=== PATIENT | male | born 1945 | race Caucasian/White ===

== ENCOUNTER 2017-03-11 05:16 | Inpatient (IN) | payer OTHER ==
[2017-02-27 08:54] LABS: HEMATOCRIT 45.1 % (42.0-52.0); HEMOGLOBIN 14.9 gm/dL (14.0-18.0); MCH 28.2 pg (26.0-34.0); MCV 85.6 fL (80.0-100.0); RBC 5.27 mil/uL (4.50-6.00); RDW 14.6 % (10.5-14.5); WBC 7.9 thou/uL (4.0-11.0)
[2017-02-27 09:02] LABS: ALBUMIN 4.1 g/dL (3.4-5.0); CALCIUM 9.5 mg/dL (8.5-10.1); CREATININE 1.5 mg/dL (0.7-1.3); POTASSIUM 4.3 mmol/L (3.5-5.1)
[2017-02-27 09:17] LABS: INR 1.1; PROTIME 11.6 Seconds (9.3-11.4)
[2017-02-27 10:20] LABS: URINE BILIRUBIN NEGATIVE (Negative); URINE BLOOD TRACE (Negative); URINE COLOR YELLOW; URINE GLUCOSE-RANDOM* NEGATIVE (Negative); URINE KETONES NEGATIVE (Negative); URINE PROTEIN (DIPSTICK) TRACE (Negative); URINE SPECIFIC GRAVITY 1.015 (1.003-1.035); URINE UROBILINOGEN 0.2 E.U./dl (0.2-1.0)
[2017-02-27 10:21] LABS: URINE LEUKOCYTES-REFLEX 1+ (Negative)
[2017-02-27 10:45] LABS: CASTS None Seen /LPF (None Seen); CRYSTALS None Seen /LPF (None Seen); SQUAMOUS >10 Many /LPF (0-3)
[2017-02-27 10:46] LABS: URINE RBC 0-2 Rare /HPF (0-2)
[~2017-03-11] VITALS: Ht 195.6 cm; Wt 113.9 kg
[2017-03-11] VITALS (14 sets, daily range): BP systolic 71–165; BP diastolic 36–86
--- NOTE | ~2017-03-11 | O ---
[facility] [place] [address] OPERATIVE REPORT Name: SUNNYOPALALVAROCINDY Deleon Room #: 408-P ADM IN M.R.#: [id number] Admission: 03/11/17 Attend Phys: Brady Calles MD Discharge: Date of : 47 Report #: [id number] THIS REPORT FOR: //name// CC: Brady Moreno DATE OF SERVICE: 03/11/2017 PREOPERATIVE DIAGNOSES: End-stage degenerative arthritis, left knee with varus malalignment. POSTOPERATIVE DIAGNOSES: End-stage degenerative arthritis, left knee with varus malalignment. PROCEDURE: Left total knee arthroplasty. SURGEON: Brady Calles MD INDICATIONS: This still active 71-year-old gentleman complains of progressive bilateral knee pain. He has moderate varus malalignment and rather significant crepitus, pain and occasional swelling and joint effusion. His symptoms are somewhat greater on the left side. We discussed treatment options. He feels conservative measures have been ineffective and is anxious to go ahead with left total knee arthroplasty. DESCRIPTION OF PROCEDURE: The patient was taken to the operating room where he was placed under general anesthesia. A femoral nerve block was also applied. The left knee and leg were meticulously prepped and draped. Prophylactic intravenous antibiotics were administered. Left thigh tourniquet was applied and inflated to 300 mmHg. An anterior longitudinal skin incision was made and carried along the medial parapatellar retinaculum. The patella was reflected laterally. Marked degenerative change in all 3 compartments was noted. The Christianson and Nephew knee system was utilized. Intramedullary guides were used on both the femur and the tibia. The femur was cut in 5 degrees of valgus. The tibia was cut perpendicular to long axis of the bone with 3 degrees of posterior slope. The femur seemed best suited for a size 6 left femoral component. The tibia was also best suited for a size 6 tibial component. A 10 mm polyethylene insert trial was placed, and this resulted in satisfactory alignment, range of motion and stability. The knee demonstrated full extension and flexion beyond 130 degrees with good stability throughout the full arc of movement. The articular surface of the patella was resected. A 35 mm patellar button seemed to fit nicely. Appropriate anchor holes were created, and a trial patella was inserted. The patella seemed to track nicely and appeared to be stable throughout a full arc of movement. At this point, the trial components were removed. The surfaces were thoroughly [address] [address] OPERATIVE REPORT Name: KERRI CORREA Room #: 408-P [facility] [place] ..#: [id number] Admission: 03/11/17 Attend Phys: Brady Calles MD Discharge: Date of : 47 Report #: [id number] irrigated. The intramedullary canal was blocked with a bone block on both the femoral and tibial sides. Methyl methacrylate cement was mixed and injected into the porous surface of the tibia. The Christianson and Nephew size 6 left tibial component was then impacted into position. It seated nicely and appeared to be secure. Excess cement was removed from around its margin. A size 6 left femoral component was then applied. This was impacted into position. It seated nicely and appeared to be secure. The cruciate retaining implants were utilized. A 10 mm polyethylene insert was snapped into position. This seated nicely and appeared to be secure. The 35 mm patellar button was positioned with appropriate anchor holes and cement and secured with a patellar clamp until the cement had hardened. All excess cement was removed around its margin. Alignment, range of motion and stability were once again assessed and felt to be satisfactory. A single Hemovac was left in the wound exiting through a separate stab incision. The tourniquet was then deflated after a total tourniquet time of 60 minutes. The fascia was then closed with multiple #1 Vicryl sutures. The subcutaneous tissues were closed with 0 Monocryl. The skin was closed with skin armando. A sterile dressing was applied. The patient was awakened and returned to recovery room in good condition. <ELECTRONICALLY SIGNED> By: Brady Calles MD 03/13/17 1224 0930 1026 Brady Calles MD /nt
[~2017-03-11 05:16] MED LIST: ALLERCLEAR10 MG PO; ELIQUIS5 MG PO; FLOMAX0.4 MG PO; GEMFIBROZIL 60600 MG PO; HYDROCHLOROTHIA25 M2 PO; LIPITOR 20 MG T20 M1 PO; LISINOPRIL10 MG PO; MEDROL DOSPAK21 TA1 PO; METOPROLOL TAR100 MG PO; PROPAFENONE 15150 MG PO; PROTONIX40 M2 PO
[2017-03-11 18:13] LABS: HEMOGLOBIN 12.1 gm/dL (14.0-18.0)
[2017-03-12 00:11] VITALS: BP 97/54
[2017-03-12 05:14] VITALS: BP 103/52
[2017-03-12 06:37] LABS: ABSOLUTE NEUTROPHILS 5.7 thou/uL (1.4-8.2); BASOPHILS 0.4 % (0.0-2.0); EOSINOPHILS 0.7 % (0.0-3.0); HEMATOCRIT 31.6 % (42.0-52.0); HEMOGLOBIN 10.9 gm/dL (14.0-18.0); LYMPHOCYTES 14.7 % (24.0-44.0); MCH 29.7 pg (26.0-34.0); MCHC 34.6 g/dL (28.0-37.0); MCV 85.9 fL (80.0-100.0); MONOCYTES 11.6 % (1.0-8.0); PLATELET COUNT 125 thou/uL (150-400); POLYS 72.6 % (36.0-66.0); RBC 3.68 mil/uL (4.50-6.00); RDW 15.2 % (10.5-14.5); WBC 7.9 thou/uL (4.0-11.0)
[2017-03-12 06:43] LABS: MANUAL DIFF NO
[2017-03-12 06:57] LABS: ALBUMIN 2.9 g/dL (3.4-5.0); CALCIUM 8.2 mg/dL (8.5-10.1); CREATININE 1.8 mg/dL (0.7-1.3); MAGNESIUM 1.7 mg/dL (1.8-2.4); POTASSIUM 3.8 mmol/L (3.5-5.1); TOTAL BILIRUBIN 0.3 mg/dL (<0.1-1.0); TOTAL PROTEIN 5.4 g/dL (6.4-8.2)
[2017-03-12 09:09] VITALS: BP 94/49
[2017-03-12 20:55] VITALS: BP 154/65
[2017-03-13 04:42] VITALS: BP 138/65
[2017-03-13 05:40] LABS: HEMOGLOBIN 10.4 gm/dL (14.0-18.0); MANUAL DIFF YES; MCHC 33.6 g/dL (28.0-37.0); MCV 86.3 fL (80.0-100.0); PLATELET COUNT 114 thou/uL (150-400); RBC 3.59 mil/uL (4.50-6.00); RDW 15.2 % (10.5-14.5); WBC 5.6 thou/uL (4.0-11.0)
[2017-03-13 05:47] LABS: CALCIUM 8.1 mg/dL (8.5-10.1); CREATININE 1.6 mg/dL (0.7-1.3); POTASSIUM 4.4 mmol/L (3.5-5.1)
[2017-03-13 07:58] LABS: ABSOLUTE NEUTROPHILS 3.8 thou/uL (1.4-8.2); ANISOCYTOSIS 1+; TOTAL CELL COUNT 100
[2017-03-13 08:00] VITALS: BP 108/68
[2017-03-13 16:19] VITALS: BP 144/70
[2017-03-13 20:00] VITALS: BP 158/65
[2017-03-14 04:00] VITALS: BP 176/85
[2017-03-14 06:08] LABS: HEMATOCRIT 31.2 % (42.0-52.0); HEMOGLOBIN 10.5 gm/dL (14.0-18.0); MCH 29.1 pg (26.0-34.0); MCHC 33.8 g/dL (28.0-37.0); MCV 86.1 fL (80.0-100.0); RBC 3.62 mil/uL (4.50-6.00); RDW 14.8 % (10.5-14.5); WBC 5.7 thou/uL (4.0-11.0)
[2017-03-14 06:19] LABS: CALCIUM 8.1 mg/dL (8.5-10.1); CREATININE 1.5 mg/dL (0.7-1.3); POTASSIUM 4.3 mmol/L (3.5-5.1)
[2017-03-14 08:00] VITALS: BP 170/89
[2017-03-14 08:05] VITALS: BP 170/89
[2017-03-14 15:16] VITALS: BP 170/89
[2017-03-14 15:17] VITALS: BP 170/89
== END 2017-03-14 16:00 | disposition home health service (06) | DRG 469 ==
LOC: 4N 05:16 → TBA 05:16 → PRE 05:25 → 4N 10:57 → PRE 14:24 → ENTRNSPT 03-14 15:54 → EDTRNSPTSTS 03-14 15:57 → 4N 03-14 16:00
PROVIDERS: Hospitalist; Nurse Practitioner; Orthopaedic Surgery
PROC: 0SRD0J9 Replacement of Left Knee Joint with Synthetic Substitute, Cemented, Open Approach (ICD-10-PCS; principal; 2017-03-11)
DX: M17.12 Unilateral primary osteoarthritis, left knee (principal); N17.0 Acute kidney failure with tubular necrosis; E43 Unspecified severe protein-calorie malnutrition; I48.92 Unspecified atrial flutter; I10 Essential (primary) hypertension; I48.91 Unspecified atrial fibrillation; G47.33 Obstructive sleep apnea (adult) (pediatric); E11.40 Type 2 diabetes mellitus with diabetic neuropathy, unspecified; I95.9 Hypotension, unspecified; E78.00 Pure hypercholesterolemia, unspecified; M19.011 Primary osteoarthritis, right shoulder; M19.071 Primary osteoarthritis, right ankle and foot; Z68.29 Body mass index [BMI] 29.0-29.9, adult; Z79.899 Other long term (current) drug therapy; Z85.828 Personal history of other malignant neoplasm of skin
CPT/HCPCS: 50010; 50101; 50415; 50954; 51130; 51225; 51412; 51771; 53078; 53364; 56525; 62110; 62900; 64042; 64043; 70005

== ENCOUNTER 2017-12-30 05:23 | Inpatient (IN) | payer OTHER ==
[2017-12-18 09:20] LABS: URINE BILIRUBIN NEGATIVE (Negative); URINE BLOOD NEGATIVE (Negative); URINE CLARITY SL CLOUDY; URINE COLOR YELLOW; URINE GLUCOSE-RANDOM* NEGATIVE (Negative); URINE KETONES NEGATIVE (Negative); URINE PROTEIN (DIPSTICK) NEGATIVE (Negative); URINE UROBILINOGEN 0.2 E.U./dl (0.2-1.0)
[2017-12-18 09:37] LABS: URINE LEUKOCYTES-REFLEX 2+ (Negative); URINE NITRITE-REFLEX POSITIVE (Negative)
[2017-12-18 09:38] LABS: INR 1.2; PROTIME 11.9 Seconds (9.3-11.4)
[2017-12-18 09:43] LABS: BACTERIA-REFLEX >30 Many /HPF (None Seen); CASTS None Seen /LPF (None Seen); CRYSTALS None Seen /LPF (None Seen); SQUAMOUS 0-3 Few /LPF (0-3); URINE RBC None Seen /HPF (0-2); URINE WBC-REFLEX >25 Many /HPF (0-5)
[2017-12-30] VITALS (8 sets, daily range): BP systolic 128–164; BP diastolic 64–75
[~2017-12-30] VITALS: Ht 195.6 cm; Wt 122.0 kg
--- NOTE | ~2017-12-30 | O ---
[facility] [place] [address] OPERATIVE REPORT Name: KERRI CORREA Pancho Room #: 450-P ADM IN M.R.#: [id number] Admission: 12/30/17 Attend Phys: Brady Calles MD Discharge: Date of : 47 Report #: [id number] THIS REPORT FOR: //name// CC: Brady Moreno DATE OF SERVICE: 12/30/2017 PREOPERATIVE DIAGNOSIS: Right knee degenerative osteoarthritis. POSTOPERATIVE DIAGNOSIS: Right knee degenerative osteoarthritis. PROCEDURE: Right total knee arthroplasty. INDICATIONS: This 72-year-old gentleman has progressive degenerative osteoarthritis of multiple joints. He underwent previous left total knee arthroplasty with good result. He now has progressive right knee pain with varus malalignment and mild flexion contracture. X-rays confirm rather severe end-stage degenerative osteoarthritis with complete collapse at the medial compartment. He and his understand treatment options and risks and benefits well and wish to proceed with total knee arthroplasty. DESCRIPTION OF PROCEDURE: The patient was taken to the operating room where he was placed under general anesthesia. Prophylactic intravenous antibiotics were administered. The right knee and leg were meticulously prepped and draped and a thigh tourniquet inflated to 300 mmHg. An anterior longitudinal skin incision was made and carried to the medial retinaculum and the patellar reflected laterally. Marked degenerative change in all 3 compartments was noted. The Christianson and Nephew knee system was utilized. Intramedullary guides were used on both the femur and the tibia. The femur was cut in 5 degrees of valgus and a size 6 femoral component fit nicely. The tibia was cut perpendicular to long axis of the bone correcting the mild varus malalignment. A size 6 tibial component also seated nicely. The patellar surface was resected and a 38-mm patellar button fit nicely. Appropriate anchor holes were created. A trial reduction was performed and an 11-mm polyethylene liner resulted in full knee extension, satisfactory flexion and good stability with varus and valgus stress. The trial components were removed. The surfaces were thoroughly irrigated and dried. The intramedullary canal was blocked with a bone block on both the femoral and tibial sides. Methylmethacrylate cement was mixed and injected into the porous surface of the tibia. The Christianson and Nephew size 6 right Rachael II tibial baseplate was inserted impacting this into position. It seated nicely and appeared to be secure. Excess cement was removed around its margin. A #11-mm cruciate retaining Legion polyethylene liner was inserted and snapped into position and seated nicely and appeared to be secure. A size 6 right femoral Legion component was impacted on the distal femur. It seated nicely and appeared to be secure. The size 38-mm Rachael II patellar button was cemented [address] [address] OPERATIVE REPORT Name: KERRI CORREA Room #: 450-P [facility] IN .R.#: [id number] Admission: 12/30/17 Attend Phys: Brady Calles MD Discharge: Date of : 47 Report #: [id number] using appropriate anchor holes and cement. This was secured with a patellar clamp until the cement had hardened. All excess cement was removed around the margin of the implants. Alignment, range of motion and stability were assessed and felt to be satisfactory. The knee demonstrated full knee extension and good stability with varus and valgus stress and flexion beyond 130 degrees. The patella seems to track nicely and appears to be stable. A single Hemovac was left in the wound exiting through a separate stab incision. The fascia was closed with multiple #1 Vicryl sutures. The subcutaneous tissues were closed with 0 Monocryl and the skin was closed with skin armando. Sterile dressing was applied. The patient was awakened and returned to recovery room in good condition. <ELECTRONICALLY SIGNED> By: Brady Calles MD 12/31/17 1233 0924 1015 Brady Calles MD /nt
--- NOTE | ~2017-12-30 | D ---
[facility] [place] [address] DISCHARGE SUMMARY Name: CORREAKERRI Room #: 227-P [facility] IN .R.#: [id number] Admission: 12/30/17 Attend Phys: Brady Calles MD Discharge: 01/03/18 Date of : 47 Report #: [id number] THIS REPORT FOR: //name// CC: Brady Moreno DATE OF SERVICE: 01/03/2018 FINAL DIAGNOSIS: End-stage degenerative osteoarthritis, right knee. OPERATIONS AND PROCEDURES: Right total knee arthroplasty. HISTORY OF PRESENT ILLNESS: This 72-year-old gentleman has progressive degenerative osteoarthritis involving multiple joints. He underwent previous left total knee arthroplasty with good result. He has progressive pain and arthritic change of the right knee and has elected to go ahead with right total knee arthroplasty at this time. HOSPITAL COURSE: The patient was admitted and taken to the operating room on 12/30/2017. He underwent right total knee arthroplasty, which he tolerated well. Postoperatively, he did have moderate discomfort and some nausea, which slowed his progress. He was able to advance to regular diet and oral analgesics and resume his regular medications. He made good progress with physical therapy and now seems to be safe and fully independent. He has good range of motion and stability of the right knee DISCHARGE MEDICATIONS: Include Protonix 40 mg daily, metoprolol 25 mg b.i.d., gemfibrozil 600 mg tablets b.i.d., Lipitor 20 mg daily, hydrochlorothiazide 25 mg daily, Eliquis 5 mg twice daily, lisinopril 10 mg daily, loratadine 10 mg daily, hydrocodone 7.5 mg one q.6 hours p.r.n. for pain. DISCHARGE INSTRUCTIONS: He will continue a regular diet and gradually advance activity at home as comfort and strength will allow. We have made arrangements for some home visiting therapy initially to make sure he is safe and active at home. He plans to progress to outpatient therapy rather quickly. I will plan to see him back in my office in 1 week for routine followup and then 2 weeks for suture removal. <ELECTRONICALLY SIGNED> By: Brady Calles MD 01/06/18 0939 [id number] [id number] Brady Calles MD /nt
[~2017-12-30 05:23] MED LIST changes: +CLARITIN10 MG PO; +MULTAQ400 MG PO; +TYLENOL PM EX-1 EACH PO
[2017-12-30 12:57] LABS: ABSOLUTE NEUTROPHILS 3.7 thou/uL (1.4-8.2); EOSINOPHILS 6.1 % (0.0-3.0); HEMATOCRIT 44.3 % (42.0-52.0); HEMOGLOBIN 14.6 gm/dL (14.0-18.0); LYMPHOCYTES 27.9 % (24.0-44.0); MCH 27.7 pg (26.0-34.0); MCHC 32.9 g/dL (28.0-37.0); MONOCYTES 10.4 % (1.0-8.0); PLATELET COUNT 148 thou/uL (150-400); POLYS 54.6 % (36.0-66.0); RBC 5.27 mil/uL (4.50-6.00); RDW 15.3 % (10.5-14.5); WBC 6.7 thou/uL (4.0-11.0)
[2017-12-31 04:45] VITALS: BP 127/66
[2017-12-31 05:49] LABS: HEMATOCRIT 34.7 % (42.0-52.0); MCH 28.5 pg (26.0-34.0); MCHC 34.5 g/dL (28.0-37.0); MCV 82.7 fL (80.0-100.0); RBC 4.2 mil/uL (4.50-6.00); RDW 15.1 % (10.5-14.5)
[2017-12-31 07:20] VITALS: BP 119/63
[2017-12-31 11:50] VITALS: BP 115/61
[2017-12-31 13:58] VITALS: BP 134/67
[2017-12-31 19:35] VITALS: BP 177/79
[2018-01-01 07:22] LABS: HEMATOCRIT 35.9 % (42.0-52.0); HEMOGLOBIN 12.4 gm/dL (14.0-18.0); MCH 28.7 pg (26.0-34.0); MCHC 34.5 g/dL (28.0-37.0); MCV 83.1 fL (80.0-100.0); RBC 4.32 mil/uL (4.50-6.00); RDW 15.4 % (10.5-14.5); WBC 10.9 thou/uL (4.0-11.0)
[2018-01-01 08:35] VITALS: BP 168/74
[2018-01-01 08:45] VITALS: BP 168/74
[2018-01-01 20:16] VITALS: BP 181/91
[2018-01-02 06:34] LABS: HEMATOCRIT 36.3 % (42.0-52.0); HEMOGLOBIN 12.5 gm/dL (14.0-18.0); MCH 28.5 pg (26.0-34.0); MCHC 34.3 g/dL (28.0-37.0); RBC 4.37 mil/uL (4.50-6.00); RDW 15.5 % (10.5-14.5); WBC 9.6 thou/uL (4.0-11.0)
[2018-01-02 08:09] VITALS: BP 146/72
[2018-01-02 20:55] VITALS: BP 150/73
[2018-01-03 07:15] VITALS: BP 150/75
[2018-01-03 10:22] VITALS: BP 150/75
[2018-01-03] MEDS ORDERED: CEFDINIR300 MG PO (12:07)
[2018-01-03] MEDS ORDERED: FLOMAX0.4 MG PO (12:07)
== END 2018-01-03 12:42 | disposition home health service (06) | DRG 470 ==
LOC: SICU 05:23 → TBA 05:23 → 4W 05:23 → PRE 05:37 → 4W 11:52 → PRE 14:56 → ENTRNSPT 12-31 13:13 → EDTRNSPTSTS 12-31 13:16 → SICU 12-31 13:23 → ENTRNSPT 01-03 12:14 → EDTRNSPTSTS 01-03 12:16 → SICU 01-03 12:42
PROVIDERS: Hospitalist; Orthopaedic Surgery
PROC: 0SRC0J9 Replacement of Right Knee Joint with Synthetic Substitute, Cemented, Open Approach (ICD-10-PCS; principal; 2017-12-30)
PROC: 5A09457 Assistance with Respiratory Ventilation, 24-96 Consecutive Hours, Continuous Positive Airway Pressure (ICD-10-PCS; principal; 2017-12-30)
DX: M17.11 Unilateral primary osteoarthritis, right knee (principal); N39.0 Urinary tract infection, site not specified; I10 Essential (primary) hypertension; E78.00 Pure hypercholesterolemia, unspecified; R33.9 Retention of urine, unspecified; Z79.899 Other long term (current) drug therapy
CPT/HCPCS: 10047; 15002; 50010; 50101; 50415; 50954; 51130; 51225; 51412; 51771; 53364; 56525; 57103; 57104; 57180; 62110; 62900; 70005